=== PATIENT | male | born 1960 ===

== ENCOUNTER 2016-12-31 07:43 | Day surgery (SDC) | payer OTHER ==
[2016-12-26 10:25] VITALS: BMI 34.9
[~2016-12-31 07:43] MED LIST: LACTATED RINGERS 1,000 ML IV SCH
[2016-12-31 08:08] VITALS: TEMP 97.4
[2016-12-31] MEDS ORDERED: LIDOCAINE 1% 20 ML VIAL (10MG/ML) FOR IV START INTRADERMA ONE (08:17)
[2016-12-31] MEDS ORDERED: LIDOCAINE 1% INJ 10MG/ML (20 ML MDV) ONE (08:32)
[2016-12-31] MEDS ORDERED: PROPOFOL 10 MG/ML 20 ML VIAL IV ONE (08:32)
[2016-12-31] MEDS ORDERED: IV FLUID CONTINUATION 1,000 ML IV ONE (08:57)
--- NOTE | 2016-12-31 09:04 | P.PCN ---
Date of Procedure: 12/31/16 Preoperative Diagnosis: Prior history of colon polyp Postoperative Diagnosis: Scattered diverticuli internal hemorrhoids Procedure(s) Performed: Colonoscopy Implants: Anesthesia: MAC Surgeon: Verónica See Estimated Blood Loss (ml): 0 Pathology: none sent Condition: stable Disposition: PACU Indications for Procedure: Prior history: Polyp Operative Findings: Scattered diverticuli internal hemorrhoids Description of Procedure: Patient was taken to the endoscopy suite and following sedation rectal exam was performed patient was noted at good sphincter tone no masses. Colonoscope was passed through the anus into the rectum was passed through the sigmoid colon which was somewhat tortuous up to the splenic flexure. Was passed through the transverse colon hepatic flexure right colon down to the area of the cecum. Circumferential observation mucosa did not reveal any lesions of concern or the in the cecum or right colon. No lesions of concern were noted in the transverse colon. No lesions of concern were noted in the left colon there were scattered diverticuli in the sigmoid colon scope was brought down into the rectum where it was retroflexed internal hemorrhoidal tissue identified. Approximately 6 minutes were taken to withdraw the scope from the cecum to the rectum Impressions/plan 1. Scattered diverticuli in the sigmoid colon 2. Internal hemorrhoids Plan: 1. Conservative management of diverticuli and hemorrhoids 2. Repeat scope 7-10 years
--- NOTE | 2016-12-31 09:05 | P.DS ---
Providers Attending physician: Verónica See Plan - Discharge Summary Discharge Medication List Aspirin [Adult Low Dose Aspirin EC] 81 mg PO DAILY 12/26/16 [History] Krill Oil 500 mg PO BID 12/26/16 [History] Multivitamins, Thera [Multivitamin (formulary)] 1 tab PO DAILY 12/26/16 [History ] Tamsulosin [Flomax] 0.4 mg PO DAILY 12/26/16 [History] Ubidecarenone [Co Q-10] 200 mg PO DAILY 12/26/16 [History] Carvedilol [Coreg] 3.125 mg PO BID 12/27/16 [History] Cholecalciferol [Vitamin D3] 2,000 unit PO DAILY 12/27/16 [History] Cinnamon Bark [Cinnamon] 500 mg PO DAILY 12/27/16 [History] Lisinopril [Zestril] 2.5 mg PO BID 12/27/16 [History] Simvastatin [Zocor] 40 mg PO HS 12/27/16 [History] Follow up Appointment(s)/Referral(s): Verónica See MD [STAFF PHYSICIAN] - As Needed Patient Instructions/Handouts: *Sur[facility] - (Anesthesia) Endoscopy Discharge Instructions, Colonoscopy (DC), Hemorrhoids (DC) Discharge Disposition: HOME SELF-CARE
[2016-12-31 09:14] VITALS: BP 115/73; PULSE 62; RESP 18
== END 2016-12-31 09:34 | disposition home or self-care (01) ==
LOC: ORWHC2ENDO 07:43
PROVIDERS: ATTEND Surgery
DX: Z12.11 Encounter for screening for malignant neoplasm of colon (principal); K57.30 Diverticulosis of large intestine without perforation or abscess without bleeding; K64.8 Other hemorrhoids; Q43.8 Other specified congenital malformations of intestine; Z86.010 Personal history of colon polyps; E78.5 Hyperlipidemia, unspecified; I10 Essential (primary) hypertension; Z95.1 Presence of aortocoronary bypass graft; F17.200 Nicotine dependence, unspecified, uncomplicated; Z79.82 Long term (current) use of aspirin; Z79.899 Other long term (current) drug therapy
CPT/HCPCS: J2001; J2704; G0105